=== PATIENT | male | born 1995 | race Hispanic/Latino ===

== ENCOUNTER 2019-01-09 20:44 | Emergency (ER) | payer OTHER ==
[2019-01-09] MEDS ORDERED: IBUPROFEN 600 MG TABLET ONE (21:03)
[2019-01-09] MEDS ORDERED: CYCLOBENZAPRINE HCL 10 MG TABLET ONE (21:48)
== END 2019-01-09 22:05 | disposition home or self-care (01) ==
LOC: EDH 20:44
DX: S33.5XXA Sprain of ligaments of lumbar spine, initial encounter (principal); S89.91XA Unspecified injury of right lower leg, initial encounter; V59.59XA Passenger in pick-up truck or van injured in collision with other motor vehicles in traffic accident, initial encounter; Y93.89 Activity, other specified; Y92.89 Other specified places as the place of occurrence of the external cause; Y99.8 Other external cause status
CPT/HCPCS: 72100